=== PATIENT | male | born 1960 | race Two or more races ===

== ENCOUNTER 2025-02-24 09:45 | Emergency (ER) | payer OTHER ==
[2025-02-24] MEDS ORDERED: Sodium Chloride 0.9% 10 ML Syringe FLUSH PRN (10:00)
[2025-02-24] MEDS ORDERED: Sodium Chloride 0.9% 2.5 ML Syringe FLUSH PRN (10:00)
[2025-02-24 10:32] LABS: MEAN PLATELET VOLUME 8.5 fL (9.4-12.4); NRBC ABSOLUTE 0.00 K/uL (0.00-0.02); NRBC PERCENT 0.0 /100WBC (0.0-0.2); PLATELET COUNT,PLT 227 K/uL (150-400); RED BLOOD CELL COUNT 4.70 M/uL (4.52-5.90); WHITE BLOOD CELL COUNT,WBC 12.88 K/uL (3.9-11.3)
[2025-02-24 10:33] LABS: GLUCOSE,URINE NEGATIVE (NEGATIVE); OCCULT BLOOD,URINE MODERATE (NEGATIVE)
[2025-02-24 10:34] LABS: APPEARANCE,URINE SLT CLOUDY
[2025-02-24 10:46] LABS: EPITHELIAL CELLS,URINE NOT SEEN (NONE-FEW)
[2025-02-24 11:14] LABS: EOSINOPHILS ABSOLUTE MAN 0.39 K/uL (0.00-0.45); EOSINOPHILS PERCENT MAN 3 % (0-6); LYMPHOCYTES ABSOLUTE MAN 3.35 K/uL (1.00-4.80); LYMPHOCYTES PERCENT MAN 26 % (24-44); MONOCYTES ABSOLUTE MAN 1.16 K/uL (0.00-0.80); MONOCYTES PERCENT MAN 9 % (0-8); SEG NEUTROPHILS ABSOLUTE MAN 7.99 K/uL (1.80-7.70); SEG NEUTROPHILS PERCENT MAN 62 % (41-71)
[2025-02-24] MEDS: Iopamidol 755 MG/ML 500 ML Multipack Bottle IVPUSH STA (11:16)
[2025-02-24] MEDS: Ketorolac 30 MG/ML SDV IVPUSH ONE (11:19)
[2025-02-24 11:31] LABS: A/G RATIO 1.0 (0.9-1.6); ALANINE AMINOTRANSFERASE,ALT 30.0 IU/L (14-63); ASPARTATE AMNIOTRANSFERASE,AST 21.0 IU/L (15-37); BILIRUBIN TOTAL 0.7 mg/dL (0.2-1.0); BLOOD UREA NITROGEN,BUN 18.0 mg/dL (7.0-18.0); CARBON DIOXIDE,CO2 26.1 mmol/L (21.0-32.0); CHLORIDE,CL 101.0 mmol/L (98-107); CREATININE 1.2 mg/dL (0.8-1.3); EST CRCL DRUG DOSING (CG) 58.14 mL/min; ESTIMATED GFR 68.0 mL/min (>60); GLUCOSE RANDOM 105.0 mg/dL (74-106); POTASSIUM,K 4.3 mmol/L (3.5-5.1); PROTEIN TOTAL,TP 7.9 g/dL (6.4-8.2); SODIUM,NA 136.0 mmol/L (136-148)
[2025-02-24] MEDS: cefTRIAXone 2 GM in Water For Injection, Sterile 20 ML IVPUSH ONE (11:44)
[2025-02-24 12:04] LABS: C. TRACHOMATIS BY PCR NOT DETECTED; N. GONORRHOEAE BY PCR NOT DETECTED
== END 2025-02-24 12:29 | disposition home or self-care (01) ==
LOC: MW.ED 09:45
DX: N20.0 Calculus of kidney (principal); N34.2 Other urethritis; Z79.899 Other long term (current) drug therapy
CPT/HCPCS: 36415; 74177; 80053; 81001; 85025; 85652; 86140; 87086; 87491; 87591; 96361; 96374; 96375; 99284; A4216; A9270; J0696; J1885; J7030; Q9967